=== PATIENT | male | born 1985 | race Caucasian/White ===

== ENCOUNTER 2018-09-03 11:35 | Emergency (ER) | payer OTHER ==
[~2018-09-03] VITALS: Ht 184.8 cm; Wt 82.4 kg
[2018-09-03 12:09] VITALS: BP 122/68
[2018-09-03] MEDS ORDERED: acetaminophen 325mg tablet PO ONE (12:25)
== END 2018-09-03 13:04 | disposition home or self-care (01) ==
LOC: ER 11:36
DX: M54.9 Dorsalgia, unspecified (principal); Z98.890 Other specified postprocedural states; V69.9XXA Occupant (driver) (passenger) of heavy transport vehicle injured in unspecified traffic accident, initial encounter; Y93.89 Activity, other specified; Y92.410 Unspecified street and highway as the place of occurrence of the external cause; Y99.8 Other external cause status
CPT/HCPCS: 99282